=== PATIENT | male | born 1945 | race Caucasian/White ===

== ENCOUNTER 2016-11-10 23:34 | Emergency (ER) | payer MEDICARE ==
[~2016-11-10] VITALS: Ht 172.7 cm; Wt 68.0 kg
--- NOTE | 2016-11-11 | NUR ---
PT AMBUALTORY TO ER BED 6 PT STATES HE FELL AND HIT HIS HEAD ON THE GROUND, PT HAS A LAC ON HIS FOREHEAD PT DENIES LOC. PT AOX4 RR EVEN AND UNLABORED. NO SOB NOTED. NAD NOTED. PT NOT DIAPHORETIC. NO NVD AT THIS TIME. PT PLACED ON MONITOR. DR. HORTON AT BEDSIDE FOR EVAL.
[2016-11-11] MEDS ORDERED: BUPIVACAINE 0.5 % PF 150 MG/30 ML VIAL IJ ONE (00:30)
[2016-11-11] MEDS ORDERED: TDAP [DIPH/PERTUSSIS/TET] 0.5 ML VIAL IM ONE ×2 (00:30→00:35)
[2016-11-11] MEDS ORDERED: BUPIVACAINE 0.5 % PF 150 MG/30 ML VIAL ONE (00:57)
--- NOTE | 2016-11-11 00:57 | NUR ---
PT TO CT.
--- NOTE | 2016-11-11 01:13 | NUR ---
PT RETURNED FROM CT.
--- NOTE | 2016-11-11 01:55 | NUR ---
DR. HORTON AT BEDSIDE FOR LAC REPAIR
[2016-11-11 02:36] VITALS: BP 128/89
--- NOTE | 2016-11-11 02:36 | NUR ---
Patient discharged to home in stable condition. Written and verbal after care instructions given. Patient verbalizes understanding of instruction. ambulatory with a steady gait. instructed pt not to drive. pt verbalize understanding.
== END 2016-11-11 02:38 | disposition home or self-care (01) ==
LOC: ER 23:34
DX: S01.81XA Laceration without foreign body of other part of head, initial encounter (principal); S09.90XA Unspecified injury of head, initial encounter; I10 Essential (primary) hypertension; E78.00 Pure hypercholesterolemia, unspecified; F17.200 Nicotine dependence, unspecified, uncomplicated; Z98.890 Other specified postprocedural states; Z23 Encounter for immunization; W22.8XXA Striking against or struck by other objects, initial encounter; Y93.89 Activity, other specified; Y92.89 Other specified places as the place of occurrence of the external cause; Y99.9 Unspecified external cause status
CPT/HCPCS: 70450-TC; 72125-TC; 90715; A4606; A6402; A6403; J3490; Z7610